=== PATIENT | female | born 1995 | race Caucasian/White ===

== ENCOUNTER → 2022-08-23 10:41 | Outpatient (CLI) | payer SELFPAY ==
[2022-08-23 12:03] LABS: Influenza A - CEPHEID Flu A NEGATIVE (NEGATIVE); Influenza B - CEPHEID Flu B NEGATIVE (NEGATIVE); Respiratory Syncytial Virus Negative (Negative)
[2022-08-23 12:05] LABS: COVID-19 CEPHEID PCR (VTM/NP) Negative (Negative)
== END ==
PROVIDERS: Visit Provider Student in an Organized Health Care Education/Training Program
DX: R09.81 Nasal congestion (principal)
CPT/HCPCS: 0241U

== ENCOUNTER → 2025-04-02 13:51 | Outpatient (CLI) | payer OTHER, SELFPAY ==
[2025-04-02 14:26] LABS: Add Manual Diff / Slide Review NO; Basophils Absolute Auto 100 /uL (0-100); Basophils Percent Auto 0.7 % (0-2); Eosinophils Absolute Auto 100 /uL (0-450); Hematocrit 43.6 % (36-46); Lymphocytes Absolute Auto 2300 /uL (1100-4500); Lymphocytes Percent Auto 21.9 % (25-40); Mean Corpuscular HGB Conc 34.3 % (30-36); Mean Corpuscular Hemoglobin 29.2 PG (26-34); Monocytes Absolute Auto 500 /uL (0-900); Monocytes Percent Auto 4.8 % (3-14); Neutrophils Absolute Auto 7500 /uL (1500-7000); Neutrophils Percent Auto 71.6 % (50-75); Platelet Count 360 X10^3/uL (150-400); Red Blood Cell Count 5.13 X10^6/uL (4.0-5.2); Red Cell Distribution Width 13.2 % (11.6-14.8); White Blood Cell Count 10.4 X10^3/uL (4.5-11.0)
[2025-04-02 14:33] LABS: Hemoglobin A1C% w Est Avg Glu 4.7 % (4.0-6.0)
[2025-04-02 14:46] LABS: BUN Creatinine Ratio 17.6 (6-22); Blood Urea Nitrogen 13 mg/dL (7-17); Calcium 9.9 mg/dL (8.4-10.2); Carbon Dioxide 22 mmol/L (22-32); Chloride 103 mmol/L (98-107); Cholesterol 206 mg/dL (140-199); Estimated Glomerular Filt Rate > 60 mL/min (>60); Glucose 84 mg/dL (70-99); HDL Cholesterol 31 mg/dL (40-60); HEMOLYSIS < 15 (0-50); LDL Cholesterol Calculated 148 mg/dL (<100); Potassium 4.2 mmol/L (3.4-5.1); Sodium 138 mmol/L (137-145); Triglycerides 134 mg/dL (35-150)
[2025-04-02 15:15] LABS: TSH w/ Reflex to FT4 1.24 uIU/mL (0.47-4.68)
== END ==
PROVIDERS: PCP Nurse Practitioner Family; Referring Provider Nurse Practitioner Family; Visit Provider Nurse Practitioner Family
DX: E66.9 Obesity, unspecified (principal)
CPT/HCPCS: 36415; 80048; 80061; 83036; 84443; 85025

== ENCOUNTER 2025-06-06 10:39 | Emergency (ER) | payer OTHER, SELFPAY ==
[2025-06-06] VITALS (10 sets, daily range): BP systolic 121–163; BP diastolic 73–102; PULSE 87–145; RESP 13–29; TEMP 36.8; O2SAT 98–100; BMI 24.1
--- NOTE | 2025-06-06 10:52 | DI.CT.S_ITS ---
PROCEDURE: CT ANGIO HEAD AND NECK INDICATIONS: right vision loss TECHNIQUE: After the administration of intravenous contrast, 1 mm thick sections acquired from the aortic arch through the [place] of [place]. 3-dimensional cgxgeml-zpazgqtqf-kseiiotmsy (MIP) and/or volume rendering reformats were acquired of the central intracranial vasculature and neck separately. For radiation dose reduction, the following was used: automated exposure control, adjustment of mA and/or kV according to patient size. COMPARISON: None. FINDINGS: Image quality: Diagnostic. Cerebral CT Angiogram: Internal carotid arteries: No acute findings. Intracranial ICA are patent with no significant stenosis. No occlusion. No aneurysm. Anterior cerebral arteries: Unremarkable. No significant stenosis. No occlusion. No aneurysm. Middle cerebral arteries: Unremarkable. No significant stenosis. No occlusion. No aneurysm. Posterior cerebral arteries: Unremarkable. No significant stenosis. No occlusion. No aneurysm. Basilar artery: Unremarkable. No significant stenosis. No occlusion. No aneurysm. Vertebral arteries: Unremarkable as visualized. Dural venous sinuses: Unremarkable given phase of enhancement. Other: Arterial phase appearance of the brain parenchyma is unremarkable. Neck CT Angiogram: Internal carotid arteries: Unremarkable. No significant stenosis. No dissection or occlusion. Common carotid arteries: Unremarkable. No significant stenosis. No dissection or occlusion. External carotid arteries: Unremarkable. No occlusion. Vertebral arteries: Incidentally noted is a separate origin of the left vertebral artery, a normal variant. No significant stenosis. No dissection or occlusion. Aortic Arch and Mediastinum: Partially visualized aortic arch unremarkable without evidence of aneurysm. Origins of the great vessels unremarkable. Other: Arterial phase soft tissues of the neck and chest are unremarkable. IMPRESSION: No significant intracranial arterial abnormality is seen. No significant abnormality is seen within the arteries of the neck. Any quantitative measurements of stenosis were performed using NASCET criteria. Dictated by: Courtney Landrum M.D. on 06/06/2025 at 10:23 Approved by: Courtney Landrum M.D. on 06/06/2025 at 10:25
--- NOTE | 2025-06-06 10:52 | DI.CT.S_ITS ---
PROCEDURE: CT STROKE INDICATIONS: Positive BE-FAST, Stroke symptoms TECHNIQUE: Noncontrast 4.5 mm thick angled axial sections acquired from the foramen magnum to the vertex, with coronal reformats. For radiation dose reduction, the following was used: automated exposure control, adjustment of mA and/or kV according to patient size. COMPARISON: None. FINDINGS: Image quality: Diagnostic. CSF spaces: Basal cisterns are patent. No extra-axial fluid collections. Ventricles are normal in size and shape. Brain: No midline shift. No intracranial mass effect or hemorrhage. Ellis- white matter interface is normal. Skull and face: Calvarium and visualized facial bones are intact, without suspicious lesions. Sinuses: Visualized sinuses and mastoids are clear. IMPRESSION: No acute intracranial pathology. This was discussed with Dr. Franklin via telephone at 1019 hrs on 06/06/2025. This study fulfills neurological imaging criteria for inclusion or exclusion of acute stroke therapies based on available published neurological imaging guidelines. Dictated by: Courtney Landrum M.D. on 06/06/2025 at 10:13 Approved by: Courtney Landrum M.D. on 06/06/2025 at 10:22
--- NOTE | 2025-06-06 10:52 | EKG_ITS ---
[facility] [address] [place] [address] Test Date: 2025-06-06 Pat Name: Ana Cristina Claros Department: [facility] Room: Gender: Female Psychiatric Secretary: : 1995 Requested By: Order Number: [id number] Reading MD: Luis Manuel Olivera Measurements Intervals [place] Rate: 97 P: 2 TX: 140 QRS: 30 QRSD: 94 T: 41 QT: 380 QTc: 482 Interpretive Statements Normal sinus rhythm Prolonged QT Electronically Signed On 06-07-2025 8:41:20 PDT by Luis Manuel Olivera
--- NOTE | 2025-06-06 10:52 | DI.RAD.S_ITS ---
PROCEDURE: XR CHEST 1V INDICATIONS: Possible stroke TECHNIQUE: One view of the chest was acquired. COMPARISON: None. FINDINGS: Surgical changes and devices: None. Lungs and pleura: Lungs are clear. No pleural effusions or pneumothorax. Mediastinum: Mediastinal contours appear normal. Heart size is normal. Bones and chest wall: No suspicious bony lesions. Overlying soft tissues appear unremarkable. IMPRESSION: No acute cardiopulmonary abnormality is seen. Dictated by: Courtney Landrum M.D. on 06/06/2025 at 10:28 Approved by: Courtney Landrum M.D. on 06/06/2025 at 10:29
[2025-06-06 11:12] LABS: INR 1.2 (0.9-1.3); Prothrombin Time 13.7 SECONDS (9.4-12.5)
--- NOTE | 2025-06-06 11:14 | ED_ITS ---
HPI - Neuro Symptoms/Deficit General Chief Complaint: Neuro Symptoms/Deficit Stated Complaint: Can't see out of RT eye - 30mins ago Time Seen by Provider: 06/06/25 11:07 Source: patient Mode of arrival: Ambulatory History of Present Illness HPI Narrative: 29-year-old female who about half an hour ago claims that he could she could not see out of her right eye. She has no neuro or cardiac history. 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 She is also complaining of some numbness and tingling down her right upper extremity. She denies any other symptoms. Her NIH stroke scale is 1. On Anticoagulants: No Related Data Previous Rx's ?Medication ?Instructions ?Recorded cyclobenzaprine 5 mg tablet 5 mg PO TID PRN muscle spa sm #15 05/24/22 tabs dextroamphetamine-amphetamine ER 20 mg PO QAM #28 caps 05/26/25 20 mg 24hr capsule,extend release (Adderall XR) fluoxetine 10 mg capsule 10 mg PO DAILY #60 caps 08/12 tirzepatide (weight loss) 12.5 12.5 mg (0.5 mL) SUBCUT QWEEK #2 mL 06/03/25 mg/0.5 mL subcutaneous pen injector Allergies Allergy/AdvReac Type Severity Reaction Status Date / Time Pertussis Vaccines Allergy Mild Rash Verified 06/06/25 10:47 Review of Systems Review of Systems ROS Unobtainable: All systems reviewed & are unremarkable except as noted in HPI and below Hematologic/Lymphatic On Anticoagulants: No Patient History Medical History (Updated 06/06/25 @ 13:50 by Zeferino Franklin MD) ADHD Displacement of breast implant Depression Anxiety Obesity (BMI 35.0-39.9 without comorbidity) Smoking Status: Current every day smoker tobacco type: vaping Exam Narrative Exam Narrative: General: Patient appears to be in no acute distress, acting appropriately Head: normocephalic, atraumatic, HEENT: Pupils equal round reactive, eyes tracking well, neck supple, no JVD Heart: regular rate and rhythm, no murmurs, rubs, or gallops heard Lungs: clear to auscultation, no adventitious sounds Abdomen: soft , nontender, nondistended, positive bowel sounds Neurological: no focal neurological signs, moving all extremities well, alert and oriented x3, Psych: good judgment ,good insight, mood is normal. Initial Vital Signs Initial Vital Signs: Vital Signs Temperature 98.2 F 06/06/25 10:47 Pulse Rate 145 H 06/06/25 10:47 Respiratory Rate 24 06/06/25 10:47 Blood Pressure 163/102 H 06/06/25 10:47 Pulse Oximetry 99 06/06/25 10:47 Oxygen Delivery Method Room Air 06/06/25 10:47 Course Course Course Narrative: Will initiate stroke protocol, stroke neurologist consulted. Orders Ordered: ED Orders 06/06/25 10:47 Complete Blood Count AUTO DIFF Stat Comprehensive Metabolic Panel Stat PTT Partial Thromboplastin Roel Stat Prothrombin Time INR Stat Troponin & CK Cardiac Panel Stat 06/06/25 10:[address] angio head and neck Stat XR chest 1V Stat Urine Drug Screen, Rapid Stat EKG-12 Lead Stat 06/06/25 12:07 MR head/brain wo con Stat 06/06/25 13:00 UA Complete [Urinalysis and Microscopic] Stat Discontinued Medications Aspirin (Aspirin Ec 81 Mg Tablet) 81 mg PO NOW ONE Stop: 06/06/25 12:05 Last Admin: 06/06/25 12:47 Dose: 81 mg Ondansetron HCl (Ondansetron 4 Mg/2 Ml Inj) 4 mg IV NOW PRN PRN Reason: Nausea And Vomiting Ondansetron HCl (Ondansetron 4 Mg Odt) 4 mg PO NOW PRN PRN Reason: Nausea And Vomiting Reevaluation(s) Reevaluation #1: Patient's symptoms slightly improved but still existent. Reevaluation #2: * Upon re-evaluation, CT brain head and CTa of head/neck were both negative and patient's symptoms improved a little bit. Consultations Consultation #1: Dr. Beltran stroke neurologist out of [place] [facility] was consulted who initially suggested that it would be up to the patient's choice to initiate thrombolytic therapy. Vital Signs Vital signs: Vital Signs - 8 hr 06/06/25 10:47 06/06/25 11:28 06/06/25 11:28 Temperature 98.2 F Pulse Rate 145 H 100 H Respiratory Rate 24 13 Blood Pressure 163/102 H 142/93 H Pulse Oximetry 99 99 Oxygen Delivery Method Room Air 06/06/25 11:30 06/06/25 11:30 06/06/25 12:00 Temperature Pulse Rate 100 H 101 H Respiratory Rate 17 29 H Blood Pressure 147/100 H Pulse Oximetry 100 Oxygen Delivery Method 06/06/25 12:04 06/06/25 12:04 06/06/25 12:48 Temperature Pulse Rate 98 H 107 H Respiratory Rate 13 Blood Pressure 135/78 Pulse Oximetry 99 100 Oxygen Delivery Method 06/06/25 12:49 06/06/25 12:49 06/06/25 13:00 Temperature Pulse Rate 97 H 108 H Respiratory Rate Blood Pressure 131/80 Pulse Oximetry 100 98 Oxygen Delivery Method 06/06/25 13:01 06/06/25 13:01 06/06/25 13:30 Temperature Pulse Rate 101 H Respiratory Rate Blood Pressure 137/77 121/73 Pulse Oximetry 99 Oxygen Delivery Method 06/06/25 13:30 Temperature Pulse Rate 87 Respiratory Rate Blood Pressure Pulse Oximetry 98 Oxygen Delivery Method MDM - Neuro Symptoms/Deficit Differential Diagnosis Differential diagnosis: Likely peripheral neuropathy, cerebrovascular accident, transient cerebral ischemia and other (ocular migraine ) Condition is:: Improved Lab Data 06/06/25 10:47 06/06/25 10:47 Labs: Lab Results 06/06/25 06/06/25 06/06/25 Range/Units 10:47 10:49 13:00 WBC 9.0 (4.5-11.0) X10^3/uL RBC 5.47 H (4.0-5.2) X10^6/uL Hgb 15.6 (12.0-16.0) g/dL Hct 46.1 H (36-46) % MCV 84.3 (80-100) fL MCH 28.4 (26-34) PG MCHC 33.7 (30-36) % RDW 13.7 (11.6-14.8) % Plt Count 404 H (150-400) X10^3/uL Neut % (Auto) 65.8 (50-75) % Lymph % (Auto) 27.0 (25-40) % [place] % (Auto) 4.7 (3-14) % Eos % (Auto) 1.7 L (2-4) % Baso % (Auto) 0.8 (0-2) % Neut # (Auto) 5900 (9352-4342) /uL Lymph # (Auto) 2400 (7208-4226) /uL [place] # (Auto) 400 (0-900) /uL Eos # (Auto) 200 (0-450) /uL Baso # (Auto) 100 (0-100) /uL PT 13.7 H (9.4-12.5) SECONDS INR 1.2 (0.9-1.3) APTT 36 (25.1-36.5) SECONDS Sodium 139 (137-145) mmol/L Potassium 3.7 (3.4-5.1) mmol/L Chloride 104 (98-107) mmol/L Carbon Dioxide 19 L (22-32) mmol/L BUN 9 (7-17) mg/dL Creatinine 0.69 (0.52-1.04) mg/dL Estimated GFR > 60 (>60) mL/min BUN/Creatinine Ratio 13.0 (6-22) Glucose 97 (70-99) mg/dL POC Whole Bld Glucose 75 (70-99) mg/dL Calcium 9.9 (8.4-10.2) mg/dL Total Bilirubin 0.9 (0.2-1.3) mg/dL AST 28 (14-36) IU/L ALT 36 H (<35) IU/L Alkaline Phosphatase 73 (38-126) U/L Total Creatine Kinase 51 (30-135) U/L Troponin I < 0.012 (0.01-0.034) ng/mL Total Protein 9.0 H (6.3-8.2) g/dL Albumin 5.0 (3.5-5.0) g/dL Globulin 4.0 (1.7-4.1) g/dL Albumin/Globulin Ratio 1.3 (1.0-2.8) Urine Color [place] Urine Appearance Clear Urine pH TNP Ur Specific [place] TNP Urine Protein TNP Urine Glucose (UA) TNP Urine Ketones TNP Urine Occult Blood TNP Urine Nitrate TNP Urine Bilirubin TNP Urine Urobilinogen TNP Ur Leukocyte Esterase TNP Urine RBC 0-1/hpf (0-5/HPF) Urine WBC 1-5/hpf (0-5/HPF) Ur Squamous Epith Cells 0-1 /hpf (0-5/HPF) Urine Bacteria Few (2-10) H (None) Ur Culture Indicated? Cult not indicated Vol Urine Centrifuged 10ml (spun) U Opiates 300ng/mL cut Negative (Negative) Ur Oxycodone Screen Negative (Negative) Urine Methadone Screen Negative (Negative) Ur Barbiturates Screen Negative (Negative) U Tricyclic Antidepress Negative (Negative) Ur Phencyclidine Scrn Negative (Negative) Ur Amphetamines Screen Positive H (Negative) U Methamphetamines Scrn Negative (Negative) Ur MDMA Scrn (Ecstasy) Negative (Negative) U Benzodiazepines Scrn Negative (Negative) Urine Cocaine Screen Negative (Negative) U Marijuana (THC) Screen Negative (Negative) Urine Specific [place] (Normal) Ur Creatinine (Normal) 06/06/25 Range/Units 13:00 WBC (4.5-11.0) X10^3/uL RBC (4.0-5.2) X10^6/uL Hgb (12.0-16.0) g/dL Hct (36-46) % MCV (80-100) fL MCH (26-34) PG MCHC (30-36) % RDW (11.6-14.8) % Plt Count (150-400) X10^3/uL Neut % (Auto) (50-75) % Lymph % (Auto) (25-40) % [place] % (Auto) (3-14) % Eos % (Auto) (2-4) % Baso % (Auto) (0-2) % Neut # (Auto) (1513-5524) /uL Lymph # (Auto) (2694-0349) /uL [place] # (Auto) (0-900) /uL Eos # (Auto) (0-450) /uL Baso # (Auto) (0-100) /uL PT (9.4-12.5) SECONDS INR (0.9-1.3) APTT (25.1-36.5) SECONDS Sodium (137-145) mmol/L Potassium (3.4-5.1) mmol/L Chloride (98-107) mmol/L Carbon Dioxide (22-32) mmol/L BUN (7-17) mg/dL Creatinine (0.52-1.04) mg/dL Estimated GFR (>60) mL/min BUN/Creatinine Ratio (6-22) Glucose (70-99) mg/dL POC Whole Bld Glucose (70-99) mg/dL Calcium (8.4-10.2) mg/dL Total Bilirubin (0.2-1.3) mg/dL AST (14-36) IU/L ALT (<35) IU/L Alkaline Phosphatase (38-126) U/L Total Creatine Kinase (30-135) U/L Troponin I (0.01-0.034) ng/mL Total Protein (6.3-8.2) g/dL Albumin (3.5-5.0) g/dL Globulin (1.7-4.1) g/dL Albumin/Globulin Ratio (1.0-2.8) Urine Color Urine Appearance Urine pH Normal Ur Specific [place] Urine Protein Urine Glucose (UA) Urine Ketones Urine Occult Blood Urine Nitrate Urine Bilirubin Urine Urobilinogen Ur Leukocyte Esterase Urine RBC (0-5/HPF) Urine WBC (0-5/HPF) Ur Squamous Epith Cells (0-5/HPF) Urine Bacteria (None) Ur Culture Indicated? Vol Urine Centrifuged U Opiates 300ng/mL cut (Negative) Ur Oxycodone Screen (Negative) Urine Methadone Screen (Negative) Ur Barbiturates Screen (Negative) U Tricyclic Antidepress (Negative) Ur Phencyclidine Scrn (Negative) Ur Amphetamines Screen (Negative) U Methamphetamines Scrn (Negative) Ur MDMA Scrn (Ecstasy) (Negative) U Benzodiazepines Scrn (Negative) Urine Cocaine Screen (Negative) U Marijuana (THC) Screen (Negative) Urine Specific [place] Normal (Normal) Ur Creatinine Normal (Normal) ECG Data Interpretation: EKG showed a normal axis, normal sinus rhythm. Rate of 97 beats per minute, no TN interval prolongation or STT wave changes. No previous ECG to compare. MDM Narrative Medical decision making narrative: 29-year-old female less likely having an acute CVA. She did not want to have thrombolytic therapy and the stroke neurologist Dr. Beltran's did agree that a stroke was less likely and that she did not need to initiate thrombolytic therapy at this time. Patient's MRI of her brain was also negative. It was decided to give her a baby aspirin today. She will follow up with her neurologist and be discharged at this time. Advised to come back for any new stroke-like symptoms. Discharge Plan Departure Patient Disposition: Home Clinical Impression: Ocular migraine Instructions: DI for Migraine, DI for Transient Ischemic Attack Activity Restrictions/Additional Instructions: Although imaging today did not point to an acute stroke, it is 100% not ruled out but much less likely. More likely dealing with an ocular migraine. Take Tylenol or ibuprofen as needed for the headache. Follow up with Neurology or PCP. Come back to the ER for any new neurological signs that are not improving. Prescriptions: No Action cyclobenzaprine 5 mg tablet 5 mg PO TID PRN (Reason: muscle spasm) Qty: 15 0RF tirzepatide (weight loss) 12.5 mg/0.5 mL pen injector 12.5 mg SUBCUT QWEEK Qty: 2 0RF fluoxetine 10 mg capsule 10 mg PO DAILY Qty: 60 0RF dextroamphetamine-amphetamine [Adderall XR] 20 mg capsule,extended release 24hr 20 mg PO QAM Qty: 28 0RF Referrals: Mila Hillman FNP-BC [Primary Care Provider, Family Practice] Stand Alone Forms: Patient Portal/API
[2025-06-06 11:15] LABS: PTT Partial Thromboplastin Tim 36 SECONDS (25.1-36.5)
[2025-06-06 11:18] LABS: Alanine Aminotransferase 36 IU/L (<35); Albumin 5.0 g/dL (3.5-5.0); Albumin Globulin Ratio 1.3 (1.0-2.8); Alkaline Phosphatase 73 U/L (38-126); Blood Urea Nitrogen 9 mg/dL (7-17); Calcium 9.9 mg/dL (8.4-10.2); Carbon Dioxide 19 mmol/L (22-32); Chloride 104 mmol/L (98-107); Creatine Kinase 51 U/L (30-135); Estimated Glomerular Filt Rate > 60 mL/min (>60); Globulin 4.0 g/dL (1.7-4.1); Glucose 97 mg/dL (70-99); HEMOLYSIS < 15 (0-50); Potassium 3.7 mmol/L (3.4-5.1); Sodium 139 mmol/L (137-145); Total Protein 9.0 g/dL (6.3-8.2)
[2025-06-06 11:23] LABS: Add Manual Diff / Slide Review NO; Hematocrit 46.1 % (36-46); Hemoglobin 15.6 g/dL (12.0-16.0); Lymphocytes Absolute Auto 2400 /uL (1100-4500); Mean Corpuscular HGB Conc 33.7 % (30-36); Mean Corpuscular Hemoglobin 28.4 PG (26-34); Mean Corpuscular Volume 84.3 fL (80-100); Platelet Count 404 X10^3/uL (150-400)
[2025-06-06 11:30] LABS: Troponin I < 0.012 ng/mL (0.01-0.034)
--- NOTE | 2025-06-06 12:07 | DI.MRI.S_ITS ---
PROCEDURE: MR HEAD/BRAIN WO CON INDICATIONS: sudden right vision loss TECHNIQUE: Noncontrast axial T1 spin echo, axial T2 fast spin echo, sagittal and axial FLAIR, coronal T2 fast spin echo, axial gradient echo, axial diffusion and ADC through the brain. COMPARISON: None. FINDINGS: Image quality: Excellent. CSF Spaces: Basal cisterns are patent. No extra-axial fluid collections. Ventricles are normal in size and shape. Brain: No intracranial masses or hemorrhage. Ellis/white matter interface is normal. Brainstem appears normal. Diffusion-weighted images demonstrate no acute infarct. No chronic ischemic insults. Normal intravascular flow voids are present. Optic nerves are symmetric and normal in size, morphology, and signal. Skull and face: Calvarium has normal marrow signal. Orbits appear normal without mass, edema, or effacement of the retrobulbar fat. Sinuses: Sinuses and mastoids are clear. IMPRESSION: Normal brain MRI. Dictated by: Courtney Landrum M.D. on 06/06/2025 at 12:37 Approved by: Courtney Landrum M.D. on 06/06/2025 at 12:41
[2025-06-06] MEDS: ASPIRIN EC 81 MG TABLET PO (12:47)
[2025-06-06 13:12] LABS: Appearance Urine UA CLEAR; Color Urine UA Orange; UR Morphine/Opiate cutoff 300 Negative (Negative); Ur Specific Gravity Normal (Normal); Urine MDMA Negative (Negative); Urine Methamphetamines Negative (Negative); Urine Tetrahydrocannabinol Negative (Negative); Urine Tricyclic Antidepressant Negative (Negative)
[2025-06-06 13:15] LABS: Culture Indicated Urine Cult Not Indicated
== END 2025-06-06 13:56 | disposition home or self-care (01) ==
PROVIDERS: Emergency Provider Family Medicine; PCP Nurse Practitioner Family
DX: G43.109 Migraine with aura, not intractable, without status migrainosus (principal); R20.0 Anesthesia of skin; R29.701 NIHSS score 1
CPT/HCPCS: 36415; 70450; 70496; 70498; 70551; 71045; 80053; 80305; 81001; 82550; 82962; 84484; 85025; 85610; 85730; 93005; 99285; Q3014; Q9967